=== PATIENT | female | born 1990 ===

== ENCOUNTER → 2020-11-14 | Outpatient (CLI) | payer OTHER | END | disposition home or self-care (01) | LOC: SONOGRAMA 08:36 | PROVIDERS: ATTEND Orthopaedic Surgery | DX: N20.2 Calculus of kidney with calculus of ureter (principal); K80.20 Calculus of gallbladder without cholecystitis without obstruction ==

== ENCOUNTER 2021-04-30 15:10 | Day surgery (SDC) | payer OTHER | END 2021-04-30 23:00 | disposition home or self-care (01) | LOC: CIR.AMB 15:10 | PROVIDERS: ATTEND Obstetrics & Gynecology | DX: O02.1 Missed abortion (principal); Z20.822 Contact with and (suspected) exposure to COVID-19 ==

== ENCOUNTER 2022-05-07 10:09 | Outpatient (CLI) | payer OTHER | END 2022-05-07 10:53 | disposition home or self-care (01) | LOC: NST 10:09 | PROVIDERS: ATTEND Obstetrics & Gynecology Maternal & Fetal Medicine | DX: Z34.83 Encounter for supervision of other normal pregnancy, third trimester (principal) ==

== ENCOUNTER 2022-05-20 06:00 | Inpatient (IN) | payer OTHER ==
[~2022-05-20] VITALS: Ht 167.6 cm; Wt 72.6 kg
[~2022-05-20 06:00] MED LIST: PRENATAL PO
[2022-05-20] MEDS ORDERED: PRENATAL + DHA1 EAC1 PO (11:11)
[2022-05-22] MEDS ORDERED: KETO10TA2 PO (08:04)
[2022-05-22] MEDS ORDERED: OXYC1TAB9 PO (08:04)
== END 2022-05-22 15:23 | disposition home or self-care (01) | DRG 788 ==
LOC: OB/GYN → O/R 06:00 → OB/GYN 07:00
PROVIDERS: ADMIT Obstetrics & Gynecology Maternal & Fetal Medicine; ATTEND Obstetrics & Gynecology Maternal & Fetal Medicine
PROC: 4A1HXCZ Monitoring of Products of Conception, Cardiac Rate, External Approach (ICD-10-PCS; 2022-05-20)
PROC: 10D00Z1 Extraction of Products of Conception, Low, Open Approach (ICD-10-PCS; principal; 2022-05-20 07:00)
DX: O32.1XX0 Maternal care for breech presentation, not applicable or unspecified (principal); Z3A.39 39 weeks gestation of pregnancy; Z37.0 Single live birth; Z20.822 Contact with and (suspected) exposure to COVID-19

== ENCOUNTER 2024-10-27 08:31 | Inpatient (IN) | payer OTHER ==
[~2024-10-27] VITALS: Ht 170.2 cm; Wt 3.2 kg
[~2024-10-27 08:31] MED LIST changes: +KETO10TA2 PO; +OXYC1TAB9 PO; +PRENATAL + DHA1 EAC1 PO
[2024-10-27 08:50] LABS: HEMATOCRIT 36.4 % (36.0-45.00); HEMOGLOBIN 12.9 g/dL (12.0-15.00); MEAN CELL VOLUME 88.8 fL (80.00-100.00); MEAN CORPUSCULAR HEMOGLOBIN 31.4 pg (27.00-32.0); MEAN CORPUSCULAR HGB CONC 35.3 g/dl (32.0-36.0); PLATELET COUNT 218 K/uL (150-450); RED CELL DISTRIBUTION WIDTH 13.6 % (11.5-14.5)
[2024-10-27 09:14] LABS: INR < 0.93; PARTIAL THROMBOPLASTIN TIME 31.5 SECONDS (22.0-34.0); PROTHROMBIN TIME 9.8 SECONDS (9.0-11.5)
[2024-10-27 09:32] LABS: ALBUMIN 2.8 gm/dL (3.4-5.0); BILIRUBIN TOTAL 0.69 mg/dL (0.3-1.2); CALCIUM 8.6 mg/dL (8.5-10.1); CREATININE SERUM 0.52 mg/dL (0.55-1.02); GFR 133.43; POTASSIUM 4.08 mEq/L (3.5-5.1); TOTAL PROTEIN 5.8 gm/dL (6.4-8.2)
[2024-11-08 07:45] VITALS: BP 104/66
[2024-11-08] MEDS ORDERED: OXYTOCIN 10 UNITS/ML VIAL IV ONE ×2 (09:15→13:00)
[2024-11-08] MEDS ORDERED: CEFOXITIN SODIUM 2,000 MG VIAL IV ONE (09:15)
[2024-11-08] MEDS ORDERED: ERYTHROMYCIN BASE OPHT 1GM EACH TUBE OP ONE (09:15)
[2024-11-08] MEDS ORDERED: CITRIC ACID/SODIUM CITRATE 30 ML BLIST.PACK PO NR (10:00)
[2024-11-08] MEDS ORDERED: MORPHINE SULFATE 4 MG/ML VIAL IV ONE (12:35)
[2024-11-08] MEDS ORDERED: MEPERIDINE HCL/PF 25 MG,MEPERIDINE HCL/PF 50 MG IM SCH (13:00)
[2024-11-08] MEDS ORDERED: KETOROLAC TROMETHAMINE 30 MG VIAL IM ONE (13:15)
[2024-11-08] MEDS ORDERED: MEPERIDINE HCL/PF 25 MG,MEPERIDINE HCL/PF 50 MG IM PRN (13:15)
[2024-11-08] MEDS ORDERED: PROMETHAZINE HCL 25 MG/ML AMPUL IM PRN (13:15)
[2024-11-08] MEDS ORDERED: KETOROLAC TROMETHAMINE 30 MG VIAL ONE (13:28)
[2024-11-08] MEDS ORDERED: OXYTOCIN 10 UNIT/ML (10ML) IV ONE (13:45)
[2024-11-08] MEDS ORDERED: OXYTOCIN 10 UNITS/ML VIAL ONE (14:04)
[2024-11-08 15:45] VITALS: BP 121/77
[2024-11-08 16:11] LABS: HEMATOCRIT 37.7 % (36.0-45.00); HEMOGLOBIN 12.9 g/dL (12.0-15.00); MEAN CELL VOLUME 89.5 fL (80.00-100.00); MEAN CORPUSCULAR HEMOGLOBIN 30.7 pg (27.00-32.0); MEAN CORPUSCULAR HGB CONC 34.3 g/dl (32.0-36.0); PLATELET COUNT 195 K/uL (150-450); RED BLOOD COUNT 4.21 M/uL (4.00-6.00); RED CELL DISTRIBUTION WIDTH 13.5 % (11.5-14.5)
[2024-11-08] MEDS ORDERED: CEFOXITIN SODIUM 2,000 MG VIAL IV SCH (17:00)
[2024-11-08] MEDS ORDERED: SIMETHICONE 125 MG CAPSULE PO SCH (17:00)
[2024-11-08] MEDS ORDERED: KETOROLAC TROMETHAMINE 10 MG TABLET PO SCH (18:00)
[2024-11-09 00:41] VITALS: BP 128/75
[2024-11-09 06:12] LABS: HEMATOCRIT 36.6 % (36.0-45.00); HEMOGLOBIN 12.9 g/dL (12.0-15.00); MEAN CELL VOLUME 88.5 fL (80.00-100.00); MEAN CORPUSCULAR HEMOGLOBIN 31.2 pg (27.00-32.0); MEAN CORPUSCULAR HGB CONC 35.3 g/dl (32.0-36.0); PLATELET COUNT 174 K/uL (150-450); RED BLOOD COUNT 4.14 M/uL (4.00-6.00); RED CELL DISTRIBUTION WIDTH 13.5 % (11.5-14.5)
[2024-11-09 08:24] VITALS: BP 125/79
[2024-11-09] MEDS ORDERED: OxyCODONE HCL/APAP UD (PERCOCET) PO SCH (09:00)
[2024-11-09 16:00] VITALS: BP 113/77
[2024-11-10] VITALS: BP 107/71
[2024-11-10 05:00] VITALS: BP 105/70
[2024-11-10] MEDS ORDERED: KETO10TA2 PO (07:51)
[2024-11-10] MEDS ORDERED: OXYC1TAB9 PO (07:51)
[2024-11-10 09:11] VITALS: BP 121/81
== END 2024-11-10 14:15 | disposition home or self-care (01) | DRG 788 ==
LOC: OB/GYN → O/R 11-08 08:04 → OB/GYN 11-08 08:04
PROVIDERS: ADMIT Obstetrics & Gynecology Maternal & Fetal Medicine; ATTEND Obstetrics & Gynecology Maternal & Fetal Medicine
PROC: 4A1HXCZ Monitoring of Products of Conception, Cardiac Rate, External Approach (ICD-10-PCS; 2024-11-08)
PROC: 10D00Z1 Extraction of Products of Conception, Low, Open Approach (ICD-10-PCS; principal; 2024-11-08 11:00)
DX: O34.211 Maternal care for low transverse scar from previous cesarean delivery (principal); O34.13 Maternal care for benign tumor of corpus uteri, third trimester; D25.9 Leiomyoma of uterus, unspecified; Z3A.39 39 weeks gestation of pregnancy; Z37.0 Single live birth; Z20.822 Contact with and (suspected) exposure to COVID-19